=== PATIENT | female | born 1980 | race Caucasian/White ===

== ENCOUNTER 2018-10-20 09:36 | Emergency (ER) | payer OTHER ==
[2018-10-20 09:55] VITALS: BP 106/69
--- NOTE | 2018-10-20 10:03 | UC ---
Throat Pain/Nasal Shravan HPI - HPI Summary HPI Summary: 38 yo female presents with sore throat and fever for the last 3 days. She tells me that 3 days ago she developed a sore throat and fever that has continued into today. She has not been taking any OTC medications, but has been taking elderberry for her symptoms with little relief. She is not checked her temperature, but has felt feverish. She is eating, drinking, and tolerating po well. Denies sinus symptoms, cough, rash, SOB, n/v. - History of Current Complaint Chief Complaint: UCGeneralIllness Stated Complaint: SORE THROAT FEVER Hx Obtained From: Patient Hx Last Menstrual Period: 10/16/18 Onset/Duration: Sudden Onset Severity: Moderate Pain Intensity: 7 Pain Scale Used: 0-10 Numeric - Allergies/Home Medications Allergies/Adverse Reactions: Allergies Allergy/AdvReac Type Severity Reaction Status Date / Time Sulfa (Sulfonamide Allergy Rash Verified 10/20/18 09:56 Antibiotics) PMH/Surg Hx/FS Hx/Imm Hx - Additional Past Medical History Additional PMH: BRCA gene - Surgical History Surgical History: Yes Surgery Procedure, Year, and Place: Lt MIDDLE FINGER - TENDON AND NERVE REPAIR, [facility] [place]. WISDOM TEETH. 01/2014 Bilateral Mastectomy with reconstruction, [facility]. FALLOPIAN TUBES REMOVED. LEFT HAND - Social History Occupation: Employed Full-time Lives: With Family Alcohol Use: Occasionally Substance Use Type: None Smoking Status (MU): Never Smoked Tobacco Review of Systems All Other Systems Reviewed And Are Negative: Yes Constitutional: Positive: Fever Skin: Positive: Negative Eyes: Positive: Negative ENT: Positive: Sore Throat Respiratory: Positive: Negative Cardiovascular: Positive: Negative Gastrointestinal: Positive: Negative Neurovascular: Positive: Negative Neurological: Positive: Negative Psychological: Positive: Negative Physical Exam - Summary Physical Exam Summary: GENERAL: NAD. WDWN. No pain distress. SKIN: No rashes, sores, lesions, or open wounds. HEENT: Head: AT/NC Eyes: Conjunctiva clear without inflammation or discharge. Ears: Hearing grossly normal. TMs intact, no bulging, erythema, or edema. Nose: Nasal mucosa pink and moist. NTTP maxillary and frontal sinus. Throat: Posterior oropharynx mild erythema and 2+ tonsillar enlargement. RIGHT tonsil with yellow/white thick exudate covering. Uvula midline. No hoarse voice or muffled voice. NECK: Supple. B/L TTP tonsillar LAD mild CHEST: CTAB. No r/r/w. No accessory muscle use. Breathing comfortably and in no distress. CV: RRR. Without m/r/g. Pulses intact. Cap refill <2seconds NEURO: Alert. PSYCH: Age appropriate behavior. Triage Information Reviewed: Yes Vital Signs: Initial Vital Signs Temp 98 F 10/20/18 09:52 Pulse 91 10/20/18 09:52 Resp 17 10/20/18 09:52 BP 106/69 10/20/18 09:52 Pulse Ox 100 10/20/18 09:52 Vital Signs Reviewed: Yes Throat Pain/Nasal Course/Dx - Course Course Of Treatment: POC strep negative. Will treat with augmentin given subjective fever and appearance of throat on exam today. A throat culture was obtained of the large exudate and will be sent for further testing. - Differential Dx/Diagnosis Provider Diagnosis: Pharyngitis, Tonsillar exudate Discharge - Sign-Out/Discharge Documenting (check all that apply): Patient Departure All imaging exams completed and their final reports reviewed: No Studies - Discharge Plan Condition: Stable Disposition: HOME Prescriptions: Amoxicillin/Clavulanate TAB* [Augmentin TAB 875*] 875 mg PO BID #14 tab Patient Education Materials: Pharyngitis (ED), Tonsillitis (ED) Referrals: Zoila Truong NP, CNM [Primary Care Provider] - Additional Instructions: If you develop a fever, shortness of breath, chest pain, new or worsening symptoms - please call your PCP or go to the ED immediately. - Billing Disposition and Condition Condition: STABLE Disposition: Home
== END 2018-10-20 10:27 | disposition home or self-care (01) ==
LOC: UCEAST 09:36
DX: J02.9 Acute pharyngitis, unspecified (principal); J35.8 Other chronic diseases of tonsils and adenoids; Z88.2 Allergy status to sulfonamides
CPT/HCPCS: 87070; 87077; 87651; 99212; G0463

== ENCOUNTER → 2018-12-18 09:07 | Day surgery (SDC) | payer OTHER ==
[~2018-12-18 09:07] MED LIST: Acetaminophen TAB* 325 MG ONE; Acetaminophen TAB* 325 MG PO PRN; Atracurium* 10 MG/ML 10 ML VIAL ONE; Bacitracin INJECTION* 50,000 UNITS ONE; Buffered Lidocaine 1% SYRIN* 1 ML/SYRINGE INTRADERM ONE; Dexamethasone IV* 4 MG/ML 1 ML (4 MG) IV SLOW PU ONE; Dexamethasone IV* 4 MG/ML 1 ML (4 MG) ONE; DiMENhydriNATE IV* 50 MG/ML VIAL IV PUSH PRN; Famotidine IV* 10 MG/ML 2 ML (20 mg) IV ONE; Famotidine IV* 10 MG/ML 2 ML (20 mg) ONE; Gentamicin ADULT (*) 40 MG/ML VIAL (2 ML VIAL = 80 MG) ONE; HYDROmorphone INJ1* 1 MG/ML SYRINGE IV PRN; Lactated Ringers 1000 ML Bag* 1,000 ML IV SCH; Lidocaine 2% PF * 5 ML VIAL ONE; Midazolam* 1 MG/ML 5 ML VIAL (5 MG) ONE; Naloxone* 0.4 MG/ML 1 ML VIAL IV PRN; Ondansetron INJ* 2 MG/ML VIAL IV PRN; Ondansetron INJ* 2 MG/ML VIAL ONE; Povidone Iodine 5% OPTH* 30 ML BTL ONE; Propofol* 10 MG/ML 20 ML BTL ONE; Scopolamine 1.5 mg* PATCH ONE; ceFAZolin 2 GM PREMIX in ORs 2 GM/50 ML BAG ONE; ceFAZolin VIAL(*) VIAL ONE; fentaNYL* 50 MCG/ML 2 ML VIAL (100 MCG VIAL) IV PRN; fentaNYL* 50 MCG/ML 5 ML VIAL (250 MCG VIAL) ONE; oxyCODONE/Acetamin 5/325 MG* TAB PO PRN
[2018-12-18 16:33] VITALS: BP 116/68
== END | disposition home or self-care (01) ==
LOC: OR 09:07
PROVIDERS: ATTEND Plastic Surgery
DX: T85.898A Other specified complication of other internal prosthetic devices, implants and grafts, initial encounter (principal); Z80.3 Family history of malignant neoplasm of breast
CPT/HCPCS: 81025; 88173; 88184; 88187; 88188; 88189; 88300; 88304; A9270-GY; A9272-GY; C1789; J0690; J1100; J1580; J2250; J2405; J2704; J3010